=== PATIENT | male | born 1965 | race Caucasian/White ===

== ENCOUNTER 2021-06-18 07:45 | Inpatient (IN) | payer OTHER ==
[~2021-06-18] VITALS: Ht 195.6 cm; Wt 142.4 kg
[~2021-06-18 07:45] MED LIST: CELE100 PO; DIAZ5 PO; HYDACE10B PO; NAPR500 PO; Nicotine Patch1 EAC5 TD; POTA8 PO
[2021-06-18 11:54] LABS: BASOPHILS ABSOLUTE AUTO 0.05 K/mm3 (0.00-0.23); BASOPHILS PERCENT AUTO 0 % (0-2); EOSINOPHILS ABSOLUTE AUTO 0.17 K/mm3 (0.00-0.68); EOSINOPHILS PERCENT AUTO 1 % (0-6); Hematocrit 40.5 % (37.0-53.0); Hemoglobin 14.2 g/dL (13.5-17.5); IMMATURE GRAN ABSOLUTE AUTO 0.05 K/mm3 (0.00-0.10); IMMATURE GRAN PERCENT AUTO 0 % (0-1); LYMPHOCYTES ABSOLUTE AUTO 1.42 K/mm3 (0.84-5.20); LYMPHOCYTES PERCENT AUTO 9 % (21-46); MONOCYTES ABSOLUTE AUTO 0.84 K/mm3 (0.16-1.47); MONOCYTES PERCENT AUTO 5 % (4-13); Mean Corpuscular HGB 32.6 pg (26.0-34.0); Mean Corpuscular HGB Conc 35.1 g/dL (31.5-36.5); Mean Corpuscular Volume 93 fL (80-100); NEUTROPHILS ABSOLUTE AUTO 12.96 K/mm3 (1.96-9.15); NEUTROPHILS PERCENT AUTO 84 % (41-73); Platelet Count 357 K/mm3 (150-400); RDW Coefficient Variation 12.6 % (11.7-14.2); RDW Standard Deviation 43.3 fL (35.1-46.3); Red Blood Cell Count 4.35 M/mm3 (4.30-5.90); White Blood Cell Count 15.49 K/mm3 (4.00-11.30)
[2021-06-18 12:21] LABS: Alanine Aminotransfer (ALT/SGP 36 U/L (12-78); Albumin, Blood 3.5 g/dL (3.4-5.0); Albumin/Globulin Ratio 1.2 (0.8-1.8); Alk Phos 73 U/L (50-136); Anion Gap 7 mmol/L (6-16); Aspartate Aminotrans (AST/SGOT 14 U/L (12-37); Bilirubin, Total 0.4 mg/dL (0.1-1.0); Blood Urea Nitrogen 18 mg/dL (8-24); Bun/Creatinine Ratio 21.3 (12.0-20.0); CO2, Blood 24 mmol/L (21-32); Calcium, Blood 8.6 mg/dL (8.5-10.1); Chloride, Blood 108 mmol/L (98-108); Creatinine, Blood 0.85 mg/dL (0.60-1.20); Glomerular Filtration Rate >60 (60-); Glucose, Blood 122 mg/dL (70-99); Potassium, Blood 4.4 mmol/L (3.5-5.5); Sodium, Blood 139 mmol/L (136-145); Total Protein, Blood 6.5 g/dL (6.4-8.2)
[2021-06-18 12:28] LABS: International Normalized Ratio 0.96; Prothrombin Time Results 10.1 Sec (9.7-11.5)
[2021-06-18] MEDS ORDERED: ELIQUIS5 M2 PO (12:45)
[2021-06-18] MEDS ORDERED: Naltrexone HCl50 MG PO (12:46)
[2021-06-18] MEDS ORDERED: HYDHCL25 PO (12:48)
[2021-06-18] MEDS ORDERED: MELATONIN5 M1 PO (13:42)
[2021-06-18 15:46] LABS: Source, Urine Clean Catch
[2021-06-18 15:50] LABS: Appearance, Urine Clear (Clear); Bilirubin, Urine Neg (Neg); Blood, Urine Neg (Neg); Color, Urine Yellow (P-Yellow); Glucose Qualitative, Urine 1+ (Neg); Ketones, Urine Neg (Neg); Leukocyte Esterase, Urine Neg (Neg); Nitrite, Urine Neg (Neg); Protein, Urine Neg (Neg); Specific Gravity, Urine 1.015 (1.003-1.022); Urobilinogen, Urine 1+ (Normal)
--- NOTE | 2021-06-18 17:26 | NUR ---
END OF SHIFT SUMMARY: PATIENT HAS BEEN AFEBRILE, DENIES CHEST PAIN OR PRESSURE, PATIENT IS MAINLY MANAGED WITH EMAR MEDICATIONS. HAS A COMUNITED L DISTAL DIAPYSEAL FX OF THE LEFT FEMUR. PATIENT ONLY ABN LAB WAS WBC AT 15.49. PATIENT HAS TO WAIT FOR SURGERY HE TAKES ELIQUIS AND IS STILL ANTICOAGULATED. ENDORSES A COVID SWAB IN ED NO EVIDENCE IN CHART FROM WHAT I SEEN, AN ORDER TO OBTAIN A COVID SWAB HAS BEEN PLACED. HISTORY OF HTN, ANX, HOME MEDS RECONCILLED WITH PATIENT LIST AND VERBALLY. AT BEDSIDE. PATIENT IS ABLE TO SELF MICRO REPOSITIONS, DENIES WANTING TO BE MOVED. WILL CONTINUE TO MONITOR UNTIL SHIFT CHANGE. PATIENT DISTAL TOES AND DISTAL PULSE STRONG, WARM NO DISCOLERATION AT THIS TIME.
--- NOTE | 2021-06-19 04:27 | NUR ---
SHIFT SUMMARY A/O X4, BEDREST AT THIS TIME DUE TO L FEMUR FX. IMMOBILIZER IN PLACE. VITAL SIGNS STABLE. TOLERATING PO INTAKE, VOIDING WELL. PAIN MANAGED WITH MEDICATION PER EMAR. BILATERAL SCDS ON AT THIS TIME. I/S AT BEDSIDE, PT DEMONSTRATED USE. USING URINAL INDEPENDENTLY. PLEASANT AND COOPERATIVE WITH CARE, WILL CONTINUE TO MONITOR AND REPORT TO ONCOMING RN.
[2021-06-19 04:39] LABS: BASOPHILS ABSOLUTE AUTO 0.04 K/mm3 (0.00-0.23); BASOPHILS PERCENT AUTO 0 % (0-2); EOSINOPHILS ABSOLUTE AUTO 0.33 K/mm3 (0.00-0.68); EOSINOPHILS PERCENT AUTO 3 % (0-6); Hematocrit 39.3 % (37.0-53.0); Hemoglobin 13.4 g/dL (13.5-17.5); IMMATURE GRAN ABSOLUTE AUTO 0.03 K/mm3 (0.00-0.10); IMMATURE GRAN PERCENT AUTO 0 % (0-1); LYMPHOCYTES ABSOLUTE AUTO 1.92 K/mm3 (0.84-5.20); LYMPHOCYTES PERCENT AUTO 19 % (21-46); MONOCYTES ABSOLUTE AUTO 0.95 K/mm3 (0.16-1.47); MONOCYTES PERCENT AUTO 9 % (4-13); Mean Corpuscular HGB 32.1 pg (26.0-34.0); Mean Corpuscular HGB Conc 34.1 g/dL (31.5-36.5); Mean Corpuscular Volume 94 fL (80-100); Mean Platelet Volume 9.4 fL (9.1-12.4); NEUTROPHILS PERCENT AUTO 68 % (41-73); Platelet Count 343 K/mm3 (150-400); RDW Coefficient Variation 12.6 % (11.7-14.2); RDW Standard Deviation 43.8 fL (35.1-46.3); Red Blood Cell Count 4.18 M/mm3 (4.30-5.90); White Blood Cell Count 10.07 K/mm3 (4.00-11.30)
[2021-06-19 05:02] LABS: Anion Gap 7 mmol/L (6-16); Blood Urea Nitrogen 14 mg/dL (8-24); Bun/Creatinine Ratio 16.2 (12.0-20.0); CO2, Blood 24 mmol/L (21-32); Calcium, Blood 8.3 mg/dL (8.5-10.1); Chloride, Blood 108 mmol/L (98-108); Creatinine, Blood 0.86 mg/dL (0.60-1.20); Glomerular Filtration Rate >60 (60-); Glucose, Blood 138 mg/dL (70-99); Potassium, Blood 4.2 mmol/L (3.5-5.5); Sodium, Blood 139 mmol/L (136-145)
--- NOTE | 2021-06-20 13:10 | NUR ---
PT RECENTLY TO [facility] BY BED, FAMILY WITH PT. History, Chart, Medications and Allergies reviewed before start of procedure.Lungs clear T/O to Auscultation. Patient confirms NPO status and agrees with scheduled surgery. Pre-Op teaching done. Pt verbalizes understanding.
--- NOTE | 2021-06-20 19:30 | NUR ---
SHIFT SUMMARY POD0 L INTERMEDULLARY RODDING, A/O X4, VSS, PAIN MANAGED WITH ALTERNATING IV AND ORAL MEDICATIONS, PT GONE IN DAY SURGERY DURING MOST OF THE LAST HALF OF THE SHIFT. CALL LIGHT IN REACH, REPORT GIVEN TO AILYN BENITO.
--- NOTE | 2021-06-21 05:10 | NUR ---
SHIFT SUMMARY A/O X4. POD1 L FEMUR RODDING- AQUACEL DRESSING TO TOP OF THIGH, C/D/I AND ALEJANDRO WRAP FROM TOP OF KNEE TO TOES, C/D/I. TOLERATING PO INTAKE, VOIDING WELL. PAIN MANAGED WITH PAIN MEDICATION PER EMAR. BEDREST THIS SHIFT. VITAL SIGNS STABLE. PT COOPERATIVE AND PLEASANT WITH CARE. WILL CONTINUE TO MONITOR AND REPORT TO ONCOMING RN.
--- NOTE | 2021-06-21 09:40 | NUR ---
06/21/21 0940 Lupe Velazquez VERIFICATIONS: EDIT CHART.
--- NOTE | 2021-06-21 14:37 | NUR ---
Pt. is sitting in a recliner and welcmoes my visit. Pt. is a little unsettled as he is waiting for his next pain med dose. Listen empathetically before nurse comes in and begins prep for the dosage. Pt. verbalizes with transparency some of his past dependance on alchohol. Through theraputic listening developed rapport with pt. Provided information regarding [facility]. Prayed with Pt. Pt. verbalized gratitude for the spiritual care visit.
--- NOTE | 2021-06-22 01:18 | NUR ---
SUMMARY GAVE REPORT TO STUDENT NURSE RADHIKA. PATIENT IS CURRENTLY SLEEPING WITH NO S/S OF DISTRESS, CALL LIGHT IN REACH.
--- NOTE | 2021-06-22 01:29 | NUR ---
ASSUMED CARE OF THIS PT AT 0130, PT APPEARS TO BE SLEEPING, EVEN UNLABORED RESPIRATIONS, CALL LIGHT IN REACH. WILL CONTINUE TO MONITOR.
--- NOTE | 2021-06-22 01:45 | NUR ---
ASSUMED CARE OF PT. PT APPEARS TO BE SLEEPING, RESP E/U, NO DISTRESS NOTED.
--- NOTE | 2021-06-22 04:17 | NUR ---
SHIFT SUMMARY, ASSUMED CARE FROM STUDENT NURSE AT 0130. PATIENT A/OX4, POD #2 FOR L FEMUR FX. PATIENT TO WORK WITH PT/OT TODAY, HOPING TO DISCHARGE HOME WITH WITH HOME HEALTH. PATIENTIS MEDICATED PER EMAR FOR PAIN AND STATES PAIN IS BETTER MANAGED TODAY. PATIENT ABLE TO USE URINAL, TOLERATES PO INTAKE. VSS, CALL LIGHT IN REACH. CONTINUE TO MONITOR FOR CHANGES.
--- NOTE | 2021-06-22 18:19 | NUR ---
SHIFT SUMMARY PT POD #4 FOR L FEMUR RODDING. AQUACEL WITH ALEJANDRO WRAP DRESSING CDI. PT'S PAIN HAS BEEN CONTROLLED PER EMR. PT WORKED WITH PHYSICAL THERAPY TODAY AND ATTEMPTED STEPS BUT STILL IS ONLY ABLE TO BEAR MINIMAL WEIGHT ON HIS LEFT LEG. PT IS TO DC HOME TOMORROW WITH HOME HEALTH. WHEEL CHAIR TRANSPORT WILL BE NEEDED. VSS.
--- NOTE | 2021-06-23 04:27 | NUR ---
SUMMARY PT SLEPT WELL T/O THE SHIFT. PT DID NOT AMBULATE DURING THE SHIFT, MEDICATED FOR PAIN PER EMAR. PT HAD NO ISSUES NOTED T/O SHIFT. PAIN MANAGED WELL PER EMAR. PT IS CURRENTLY AWAKE AND RESTING COMFORTABLY. CALL LIGHT IN REACH
[2021-06-23] MEDS ORDERED: Percocet 5-3251 EACH PO (10:28)
[2021-06-23] MEDS ORDERED: DOCU100 PO (12:02)
[2021-06-23] MEDS ORDERED: Acetaminophen325 M1 PO (12:16)
[2021-06-23] MEDS ORDERED: Calcium Carbon500 MG PO (12:18)
[2021-06-23] MEDS ORDERED: SENN187 PO (12:21)
--- NOTE | 2021-06-23 13:19 | NUR ---
PT REQUESTS 7 DAY PRESCRIPTION FOR ELIQUIS, ATARAX AND REVIA STATES HIS MEDICATIONS ARE IN HIS TRAILER OUT OF TOWN AND NO ONE CAN BRING THEM TO HIM FOR [address] CHOUDHURY WHO APPROVED 7 DAYS OF EACH. PRESCRIPTION PHONED TO [facility]
--- NOTE | 2021-06-23 13:40 | NUR ---
DISCHARGE PT DISCHARGED AT 1340 VIA NON-EMERGENCY TRANSPORT HOME. DISCHARGE INSTRUCTIONS REVIEWED WITH PATIENT. PT SBA WHEN AMBULATING WITH FWW, REINFORCED USING FWW AT ALL TIMES FOR FALL SAFETY. TOLERATING PO INTAKE AND PASSING FLATUS. EXTRA DRESSINGS PROVIDED. PATIENT/FAMILY IN AGREEMENT WITH DISCHARGE PLAN, STATED HAVING/ACQUIRING NECESSARY EQUIPMENT FOR HOME CARE. HARD COPY OF PRESCRIPTION PLACED IN PATIENTS DISCHARGE FOLDER. DRESSING C/D/I. DENIES N/T.
== END 2021-06-23 13:54 | disposition home health service (06) | DRG 482 ==
LOC: ER 07:45 → SURS 10:53
PROVIDERS: Orthopaedic Surgery; ADMIT Internal Medicine
PROC: 0QHC36Z Insertion of Intramedullary Internal Fixation Device into Left Lower Femur, Percutaneous Approach (ICD-10-PCS; principal; 2021-06-20 13:30)
DX: S72.402A Unspecified fracture of lower end of left femur, initial encounter for closed fracture (principal); K21.9 Gastro-esophageal reflux disease without esophagitis; E11.9 Type 2 diabetes mellitus without complications; M17.0 Bilateral primary osteoarthritis of knee; W01.0XXA Fall on same level from slipping, tripping and stumbling without subsequent striking against object, initial encounter; Z79.01 Long term (current) use of anticoagulants; Z88.8 Allergy status to other drugs, medicaments and biological substances; Z98.890 Other specified postprocedural states; Z86.718 Personal history of other venous thrombosis and embolism; Z79.899 Other long term (current) drug therapy; Z87.891 Personal history of nicotine dependence; Z68.37 Body mass index [BMI] 37.0-37.9, adult
CPT/HCPCS: 36415; 73552; 73562-LT; 80048; 80053; 81003; 85025; 85610; 85730; 96372; 96374; 97110; 97116; 97162; 97530; 99284-25; A9270; C1713; C1769; J0171; J0690; J1100; J1170; J1650; J2250; J2405; J2704; J3010; J7030; J7120

== ENCOUNTER 2021-10-04 06:13 | Day surgery (SDC) | payer OTHER ==
[~2021-10-04] VITALS: Ht 195.6 cm; Wt 147.7 kg
[~2021-10-04 06:13] MED LIST changes: +Acetaminophen325 M1 PO; +Calcium Carbon500 MG PO; +DOCU100 PO; +ELIQUIS5 M2 PO; +HYDHCL25 PO; +MELATONIN5 M1 PO; +Naltrexone HCl50 MG PO; +OMEP20ER PO; +Percocet 5-3251 EACH PO; +SENN187 PO; +Vitamin B Comple1 EA PO
--- NOTE | 2021-10-04 07:24 | NUR ---
History, Chart, Medications and Allergies reviewed before start of procedure. Patient confirms NPO status and agrees with scheduled surgery. Lungs clear T/O to Auscultation.
--- NOTE | 2021-10-04 10:00 | NUR ---
10/04/21 1000 Presley Flores NURSE NOTE: STAFF CONCERNS VOICED TO SURGEON. ORD.AXB ORD.CE2 ORD.LSM ORD.GBH2
--- NOTE | 2021-10-04 15:40 | NUR ---
ARRIVED FORM PACU THIS AFTEROON VIA BED, PT INSISTING ON GETTING OOB SINCE IN PACU, PT ASSISTED TO DANGLE IN ROOM, PT SEEMS ANGRY AND IRRITABLE STATES YOU ARE "DOING THE OPPOSITE OF WHAT I WANT YOU TO DO" PT WAS GIVEN DILAUDID IV AND FENTANYL JUST PRIOR TO PACU DC PER JIGNA ASHBY, PT ALSO GIVEN 1 OXYCODONE, WAS RESTING IN BED AFTER MEDICATED AND VISITING WITH FAMILY, CURRENTLY WORKING WITH PT.
--- NOTE | 2021-10-04 17:56 | NUR ---
SUMMARY S/P L TKA, PT REPORTS FEELING "BETTER" NOW AFTER MEDICATED FOR PAIN, WORKED WITH PT THIS AFTERNOON, STATES TOLERATED FAIRLY WELL, DSG C/D/I, DENIES ANY NAUSEA, NO ACUTE CHANGES THIS SHIFT.
--- NOTE | 2021-10-05 04:13 | NUR ---
SHIFT SUMMARY PATIENT A&OX4. VOIDING WITH BEDSIDE URINAL, BUT WAS UP AND WORKED WITH PT YESTERDAY. ALEJANDRO WRAP IN PLACE WITH POLAR-PACK, C/D/I. COMPLAINED OF SOME ACID REFLEX SO AN ORDER FOR TUMS WAS OBTAINED. TOLERATING PO INTAKE. CALL LIGHT WITHIN REACH.
[2021-10-05 08:33] LABS: BASOPHILS ABSOLUTE AUTO 0.03 K/mm3 (0.00-0.23); BASOPHILS PERCENT AUTO 0 % (0-2); EOSINOPHILS ABSOLUTE AUTO 0.01 K/mm3 (0.00-0.68); EOSINOPHILS PERCENT AUTO 0 % (0-6); Hematocrit 35.1 % (37.0-53.0); Hemoglobin 11.8 g/dL (13.5-17.5); IMMATURE GRAN ABSOLUTE AUTO 0.08 K/mm3 (0.00-0.10); IMMATURE GRAN PERCENT AUTO 1 % (0-1); LYMPHOCYTES ABSOLUTE AUTO 1.82 K/mm3 (0.84-5.20); LYMPHOCYTES PERCENT AUTO 10 % (21-46); MONOCYTES ABSOLUTE AUTO 1.11 K/mm3 (0.16-1.47); MONOCYTES PERCENT AUTO 6 % (4-13); Mean Corpuscular HGB 29.2 pg (26.0-34.0); Mean Corpuscular HGB Conc 33.6 g/dL (31.5-36.5); Mean Corpuscular Volume 87 fL (80-100); NEUTROPHILS ABSOLUTE AUTO 14.42 K/mm3 (1.96-9.15); NEUTROPHILS PERCENT AUTO 82 % (41-73); Platelet Count 304 K/mm3 (150-400); RDW Coefficient Variation 12.6 % (11.7-14.2); RDW Standard Deviation 39.8 fL (35.1-46.3); Red Blood Cell Count 4.04 M/mm3 (4.30-5.90); White Blood Cell Count 17.47 K/mm3 (4.00-11.30)
[2021-10-05 08:54] LABS: Bun/Creatinine Ratio 23.7 (12.0-20.0); Creatinine, Blood 0.8 mg/dL (0.60-1.20); Potassium, Blood 4.3 mmol/L (3.5-5.5)
--- NOTE | 2021-10-05 11:48 | NUR ---
DISCHARGE SUMMARY POD1 L TKA, A/OX4, VSS, TOLERATING PO, AMBULATING WITH MINIMAL ASSISTANCE FWW/GB, VOIDING. PT WORKED WITH PHYSICAL THERAPY AND WAS CLEARED FOR DISCHARGE. DISCUSSED DISCHARGE INSTRUCTIONS WITH THE PT AND HIS INCLUDING HOME CARE, S/SX TO LOOK OUT FOR, MEDICATIONS, AND FOLLOW UP APPOINTMENTS. REMOVED IV ACCESS DEVICE AND NO OTHER DEVICES IN PLACE, VERIFIED SIZE OF DRESSING AND PROVIDED PT AN EXTRA ONE TO CHANGE OUT IN 5 DAYS. NO OTHER QUESTIONS FROM EITHER PT OR HIS . ESCORTED PT OUT VIA WC TO PRIVATE AUTO TO GO HOME.
== END 2021-10-05 11:22 | disposition home or self-care (01) ==
LOC: ORSCMMR 06:13 → ORD 07:30 → SURS 13:57 → ORSCMMR 10-05 11:22
PROVIDERS: Orthopaedic Surgery
PROC: 8E0Y0CZ Robotic Assisted Procedure of Lower Extremity, Open Approach (ICD-10-PCS; principal; 2021-10-04 08:15)
PROC: 0SPD04Z Removal of Internal Fixation Device from Left Knee Joint, Open Approach (ICD-10-PCS; principal; 2021-10-04 08:15)
PROC: 0SRD0JA Replacement of Left Knee Joint with Synthetic Substitute, Uncemented, Open Approach (ICD-10-PCS; principal; 2021-10-04 08:15)
DX: M17.12 Unilateral primary osteoarthritis, left knee (principal); S72.402D Unspecified fracture of lower end of left femur, subsequent encounter for closed fracture with routine healing; Z87.891 Personal history of nicotine dependence; K21.9 Gastro-esophageal reflux disease without esophagitis; Z86.718 Personal history of other venous thrombosis and embolism; Z79.01 Long term (current) use of anticoagulants; Z79.899 Other long term (current) drug therapy; E66.9 Obesity, unspecified; Z68.38 Body mass index [BMI] 38.0-38.9, adult
CPT/HCPCS: 27447; 20680; S2900; 36415; 73560-LT; 80048; 85025; 97110; 97112; 97116; 97161; A9270; C1776; J0171; J0690; J0735; J1100; J1170; J1885; J2250; J2405; J2704; J2795; J3010; J7120

== ENCOUNTER 2021-10-19 11:20 | Emergency (ER) | payer OTHER ==
[~2021-10-19] VITALS: Ht 195.6 cm; Wt 142.9 kg
[2021-10-19 12:36] LABS: BASOPHILS ABSOLUTE AUTO 0.04 K/mm3 (0.00-0.23); BASOPHILS PERCENT AUTO 0 % (0-2); EOSINOPHILS ABSOLUTE AUTO 0.01 K/mm3 (0.00-0.68); EOSINOPHILS PERCENT AUTO 0 % (0-6); Hematocrit 39.8 % (37.0-53.0); Hemoglobin 13.5 g/dL (13.5-17.5); IMMATURE GRAN ABSOLUTE AUTO 0.04 K/mm3 (0.00-0.10); IMMATURE GRAN PERCENT AUTO 0 % (0-1); LYMPHOCYTES ABSOLUTE AUTO 0.76 K/mm3 (0.84-5.20); LYMPHOCYTES PERCENT AUTO 5 % (21-46); MONOCYTES ABSOLUTE AUTO 0.27 K/mm3 (0.16-1.47); MONOCYTES PERCENT AUTO 2 % (4-13); Mean Corpuscular HGB 29.1 pg (26.0-34.0); Mean Corpuscular HGB Conc 33.9 g/dL (31.5-36.5); Mean Corpuscular Volume 86 fL (80-100); Mean Platelet Volume 8.9 fL (9.1-12.4); NEUTROPHILS ABSOLUTE AUTO 14.75 K/mm3 (1.96-9.15); NEUTROPHILS PERCENT AUTO 93 % (41-73); Platelet Count 558 K/mm3 (150-400); RDW Coefficient Variation 13.1 % (11.7-14.2); RDW Standard Deviation 40.3 fL (35.1-46.3); Red Blood Cell Count 4.64 M/mm3 (4.30-5.90); White Blood Cell Count 15.87 K/mm3 (4.00-11.30)
== END 2021-10-19 14:28 | disposition home or self-care (01) ==
LOC: ER 11:20
PROVIDERS: Student in an Organized Health Care Education/Training Program
DX: R11.2 Nausea with vomiting, unspecified (principal); E66.9 Obesity, unspecified; F17.200 Nicotine dependence, unspecified, uncomplicated; Z79.01 Long term (current) use of anticoagulants
CPT/HCPCS: 36415; 71045; 85025; A9270; C9113; J2405; J7030

== ENCOUNTER 2022-01-27 07:10 | Day surgery (SDC) | payer OTHER ==
[~2022-01-27] VITALS: Ht 195.6 cm; Wt 138.6 kg
--- NOTE | 2022-01-27 09:34 | NUR ---
01/27/22 0934 Laura Ahmadi ROPIVACAINE 0.5% 1:200,000 MIXED 1:1 W/ LIDOCAINE 2% 1:100,000 FOR INJECTION AT OPSITE BY DR CABRERA. 10 MLS INJECTED.
== END 2022-01-27 10:22 | disposition home or self-care (01) ==
LOC: ORSCSDS 07:10
PROVIDERS: Orthopaedic Surgery
PROC: 0SPD04Z Removal of Internal Fixation Device from Left Knee Joint, Open Approach (ICD-10-PCS; principal; 2022-01-27 09:30)
DX: T84.84XA Pain due to internal orthopedic prosthetic devices, implants and grafts, initial encounter (principal); Z47.1 Aftercare following joint replacement surgery; Z96.652 Presence of left artificial knee joint; Z86.718 Personal history of other venous thrombosis and embolism; Z79.01 Long term (current) use of anticoagulants; K21.9 Gastro-esophageal reflux disease without esophagitis; Z79.899 Other long term (current) drug therapy
CPT/HCPCS: J0690; J2250; J2704; J2795; J3010

== ENCOUNTER 2024-09-05 15:32 | Emergency (ER) | payer MEDICARE, OTHER ==
[~2024-09-05] VITALS: Ht 165.1 cm; Wt 101.6 kg
[2024-09-05] MEDS ORDERED: Ondansetron HCl 2 MG / ML 2ML Vial IV ONE ×2 (15:55→19:05)
[2024-09-05] MEDS ORDERED: Morphine Sulfate 4 MG/1 ML Injection IV ONE ×2 (15:55→19:05)
[2024-09-05 16:24] LABS: BASOPHILS ABSOLUTE AUTO 0.02 K/mm3 (0.00-0.23); BASOPHILS PERCENT AUTO 0 % (0-2); EOSINOPHILS ABSOLUTE AUTO 0.00 K/mm3 (0.00-0.68); EOSINOPHILS PERCENT AUTO 0 % (0-6); Hematocrit 43.3 % (37.0-53.0); Hemoglobin 15.2 g/dL (13.5-17.5); IMMATURE GRAN ABSOLUTE AUTO 0.03 K/mm3 (0.00-0.10); IMMATURE GRAN PERCENT AUTO 0 % (0-1); LYMPHOCYTES ABSOLUTE AUTO 0.72 K/mm3 (0.84-5.20); LYMPHOCYTES PERCENT AUTO 6 % (21-46); MONOCYTES ABSOLUTE AUTO 0.27 K/mm3 (0.16-1.47); MONOCYTES PERCENT AUTO 2 % (4-13); Mean Corpuscular HGB Conc 35.1 g/dL (31.5-36.5); Mean Corpuscular Volume 90 fL (80-100); NEUTROPHILS ABSOLUTE AUTO 10.88 K/mm3 (1.96-9.15); NEUTROPHILS PERCENT AUTO 91 % (41-73); NRBC ABSOLUTE 0.00 K/mm3 (0.00-0.02); NRBC Auto 0.0 /100 WBC (0.0-0.2); Platelet Count 347 K/mm3 (150-400); RDW Coefficient Variation 13.2 % (11.7-14.2); RDW Standard Deviation 43.3 fL (35.1-46.3)
[2024-09-05 16:39] LABS: Alanine Aminotransfer (ALT/SGP 29.0 U/L (12-78); Albumin, Blood 3.8 g/dL (3.4-5.0); Albumin/Globulin Ratio 1.1 (0.8-1.8); Anion Gap 10.0 mmol/L (3-11); Aspartate Aminotrans (AST/SGOT 20.0 U/L (12-37); Bilirubin, Total 0.9 mg/dL (0.1-1.0); Blood Urea Nitrogen 12.0 mg/dL (8-24); CO2, Blood 24.0 mmol/L (21-32); Calcium, Blood 9.0 mg/dL (8.5-10.1); Chloride, Blood 108.0 mmol/L (98-108); Creatinine, Blood 0.73 mg/dL (0.60-1.20); Globulin, Blood 3.6 g/dL (2.2-4.0); Glucose, Blood 136.0 mg/dL (70-99); Potassium, Blood 3.4 mmol/L (3.5-5.5); Sodium, Blood 139.0 mmol/L (136-145); Total Protein, Blood 7.4 g/dL (6.4-8.2)
[2024-09-05] MEDS ORDERED: ONDA4ODT MM (20:12)
[2024-09-05] MEDS ORDERED: Mupirocin22 GM TOP (20:12)
[2024-09-05] MEDS ORDERED: RX Prepack 2 Tabs Ondansetron ODT 4MG UD ONE (20:15)
[2024-09-05 20:40] VITALS: BP 123/58
== END 2024-09-05 20:17 | disposition home or self-care (01) ==
LOC: ER 15:32
PROVIDERS: Emergency Medicine
DX: L02.215 Cutaneous abscess of perineum (principal); R23.4 Changes in skin texture; R11.2 Nausea with vomiting, unspecified; K21.9 Gastro-esophageal reflux disease without esophagitis; M19.90 Unspecified osteoarthritis, unspecified site; F17.200 Nicotine dependence, unspecified, uncomplicated; Z79.899 Other long term (current) drug therapy
CPT/HCPCS: 74177; 80053; 83690; 85025; 93005; 93010; 93971; 96374-59; 96375; 99284-25; A9270; J2270; J2405; Q9967